=== PATIENT | female | born 1970 | race Caucasian/White ===

== ENCOUNTER 2017-12-11 19:55 | Emergency (ER) | payer OTHER ==
--- NOTE | 2017-12-11 20:51 | EDM.PDOC ---
ED HPI GENERAL MEDICAL PROBLEM - General Chief Complaint: Chest Pain Stated Complaint: chest pain Time Seen by Provider: 12/11/17 20:09 Source of Information: Reports: Patient History Limitations: Reports: No Limitations - History of Present Illness INITIAL COMMENTS - FREE TEXT/NARRATIVE: This is a 47-year-old female. This afternoon she went to the store and got some groceries and when she got home she had to go up 8 steps into the house reading her bags of groceries and she did this 3 times. After which she was very short of breath and felt weak and she developed a throbbing in her left anterior chest that seemed to go down her left arm into the elbow. This was on the outside of the arm and not in the axilla area. It did not go into her neck it did not radiate into her jaw. He was not in the center of the chest but actually up underneath the clavicle. She did have some nausea and vomiting one time with the shortness of breath. He says she saw Dr. Linares a wheat grower in [facility] be a little more than a year ago had a cardiac stress test due to her inability to get her cholesterol down and he thought the stress test was abnormal but not enough to do a cardiac Cath. It was more abnormal because she can only last about 8 minutes in the stress test due to shortness of breath though she did not have any chest pain. She denies any smoking she denies any other acute symptoms. Right now she still has mild throbbing in the left anterior chest area but no other symptoms. Family history includes a father who smoked and was exposed to Agent [place] and had multiple heart attacks and strokes starting when he was in his 40s. Her mother does not have any significant medical problems nor her brothers or sisters. Treatments PESTICIDE USE MEDICAL COORDINATOR: Reports: Other (see below) Other Treatments PESTICIDE USE MEDICAL COORDINATOR: aspirin 81 mg Left Chest Pain Score (Numeric/FACES): 6 - Related Data Allergies Allergy/AdvReac Type Severity Reaction Status Date / Time No Known Allergies Allergy Verified 05/01/16 09:13 Home Meds: Home Meds Aspirin [Halfprin] 81 mg PO DAILY 12/11/17 [History] DULoxetine [Cymbalta] 30 mg PO DAILY 12/11/17 [History] Ezetimibe [Zetia] 10 mg PO DAILY 12/11/17 [History] Nitroglycerin 0.4 mg SL ONETIME PRN #1 bottle 12/11/17 [Rx] Hooper-3/DHA/Epa/Fish Oil [Fish Oil 1,000 mg Softgel] 2 each PO DAILY 12/11/17 [ History] Rosuvastatin Calcium [Crestor] 40 mg PO DAILY 12/11/17 [History] Ubidecarenone [Coq-10] 200 mg PO DAILY 12/11/17 [History] Past Medical History Cardiovascular History: Reports: High Cholesterol Gastrointestinal History: Reports: Other (See Below) Other Gastrointestinal History: rectal polyps removed benign Musculoskeletal History: Reports: Other (See Below) Other Musculoskeletal History: melania veena - Past Surgical History HEENT Surgical History: Reports: LASIK Female Surgical History: Reports: Hysterectomy Social & Family History - Tobacco Use Smoking Status *Q: Never Smoker - Caffeine Use Caffeine Use: Reports: Soda - Recreational Drug Use Recreational Drug Use: No ED ROS GENERAL - Review of Systems Review Of Systems: See Below Constitutional: Denies: Fever, Chills HEENT: Reports: No Symptoms Respiratory: Reports: Shortness of Breath. Denies: Wheezing, Cough Cardiovascular: Denies: Chest Pain GI/Abdominal: Reports: Nausea, Vomiting. Denies: Abdominal Pain, Diarrhea : Reports: No Symptoms Musculoskeletal: Reports: No Symptoms Skin: Reports: No Symptoms Neurological: Reports: No Symptoms Psychiatric: Reports: No Symptoms Hematologic/Lymphatic: Reports: No Symptoms ED EXAM, GENERAL - Physical Exam Exam: See Below Exam Limited By: No Limitations General Appearance: Alert, WD/WN, No Apparent Distress Eye Exam: Bilateral Eye: Normal Inspection Ears: Normal External Exam, Normal Canal, Normal TMs Nose: Normal Inspection Throat/Mouth: Normal Inspection, Normal Lips, Normal Voice, No Airway Compromise Head: Normocephalic Neck: Supple Respiratory/Chest: No Respiratory Distress, Lungs Clear, Normal Breath Sounds, Other (Palpation of the left anterior chest where she complained of throbbing just below the clavicle is nontender on palpation. She does have tenderness however in the left shoulder upper back rhomboid muscles on palpation) Cardiovascular: Regular Rate, Rhythm, No Murmur GI/Abdominal: Soft, Non-Tender Back Exam: Normal Inspection, Full Range of Motion Extremities: Normal Inspection, Normal Range of Motion, Other (Left shoulder does not appear to be tender with movement there is no bicipital tendon pain on palpation, the pain down the left arm has resolved at this time and it only seems to be in the left anterior chest area that she got a slight throbbing) Neurological: Alert, Oriented Psychiatric: Normal Affect, Normal Mood Skin Exam: Warm, Dry EKG INTERPRETATION EKG Date: 12/11/17 Time: 20:02 EKG Interpretation Comments: EKG shows a sinus rhythm normal, no acute ST or T-wave changes, no acute ischemia noted. Course - Vital Signs Last Recorded V/S: Last Vital Signs Temp 97.8 F 12/11/17 20:02 Pulse 66 12/11/17 22:31 Resp 19 12/11/17 22:31 BP 80/68 L 12/11/17 22:31 Pulse Ox 93 L 12/11/17 22:31 - Orders/Labs/Meds Orders: Active Orders 24 hr Category Date Time Status EKG 12 Lead [EKG Documentation Completion] [RC] STAT Care 12/11/17 20:20 Active Labs: Laboratory Tests 12/11/17 12/11/17 12/11/17 Range/Units 20:09 20:09 22:24 WBC 8.58 (3.98-10.04) K/mm3 RBC 4.33 (3.98-5.22) M/mm3 Hgb 12.4 (11.2-15.7) gm/L Hct 37.8 (34.1-44.9) % MCV 87.3 (79.4-94.8) fl MCH 28.6 (25.6-32.2) pg MCHC 32.8 (32.2-35.5) g/dl RDW Std Deviation 45.5 (36.4-46.3) fL Plt Count 234 (182-369) K/mm3 MPV 10.4 (9.4-12.3) fl Neut % (Auto) 54.5 (34.0-71.1) % Lymph % (Auto) 35.8 (19.3-51.7) % [place] % (Auto) 7.2 (4.7-12.5) % Eos % (Auto) 2.0 (0.7-5.8) Baso % (Auto) 0.3 (0.1-1.2) % Neut # (Auto) 4.67 (1.56-6.13) K/mm3 Lymph # (Auto) 3.07 (1.18-3.74) K/mm3 [place] # (Auto) 0.62 H (0.24-0.36) K/mm3 Eos # (Auto) 0.17 (0.04-0.36) K/mm3 Baso # (Auto) 0.03 (0.01-0.08) K/mm3 Sodium 137 (136-145) mEq/L Potassium 3.6 (3.5-5.1) mEq/L Chloride 104 (98-107) mEq/L Carbon Dioxide 25 (21-32) mEq/L Anion Gap 11.6 (5-15) BUN 16 (7-18) mg/dL Creatinine 0.9 (0.55-1.02) mg/dL Est Cr Clr Drug Dosing 75.95 mL/min Estimated GFR (MDRD) > 60 (>60) mL/min BUN/Creatinine Ratio 17.8 (14-18) Glucose 97 (74-106) mg/dL Calcium 8.2 L (8.5-10.1) mg/dL Total Bilirubin 0.3 (0.2-1.0) mg/dL AST 17 (15-37) U/L ALT 19 (14-59) U/L Alkaline Phosphatase 149 H (46-116) U/L Troponin I < 0.017 < 0.017 (0.00-0.056) ng/mL Total Protein 6.7 (6.4-8.2) g/dl Albumin 3.3 L (3.4-5.0) g/dl Globulin 3.4 gm/dL Albumin/Globulin Ratio 1.0 (1-2) Meds: Medications Discontinued Medications Generic Name Dose Route Start Last Admin Trade Name Freq PRN Reason Stop Dose Admin Nitroglycerin 0.4 mg 12/11/17 20:52 12/11/17 20:56 Nitrostat SL 12/11/17 20:53 0.4 mg ONETIME ONE Administration - Re-Assessments/Exams Free Text/Narrative Re-Assessment/Exam: 12/11/17 22:03 I spoke to the patient regarding the EKG and the lab results with a negative troponin. We did give her a single nitroglycerin that seemed to resolve that throbbing sensation in her left anterior chest just below the clavicle. She feels good now. We will recheck a troponin 2 hours after the first draw to make sure there is no change. I encouraged her again to see Dr. Linares this week for recheck and further evaluation. 12/11/17 23:10 I spoke to the patient and her significant other that the second enzyme was negative. I stressed heavily that she has to follow up with her wheat grower this week for evaluation. I'll give her a prescription for some sublingual nitroglycerin and if she develops the chest symptoms she had tonight she is to take 1 while seated I warned her about nitroglycerin dropping the blood pressure and if the nitroglycerin does not resolve the chest pain adequately she needs to return to the ER. In the meantime she is not to do anything strenuous at home or going up and down a lot of steps. She states she understands. Departure - Departure Time of Disposition: 23:12 Disposition: Home, Self-Care 01 Condition: Good Clinical Impression: Chest pain Qualifiers: Chest pain type: unspecified Qualified Code(s): R07.9 - Chest pain, unspecified Prescriptions: Nitroglycerin 0.4 mg SL ONETIME PRN #1 bottle PRN Reason: Chest Pain Referrals: Jacqueline Mosquera NP [Primary Care Provider] - Romero Linares MD [Ordering Only Provider] - Forms: ED Department Discharge Additional Instructions: Gentle activity until you follow up with your wheat grower Dr. Linares, call his office on Wednesday for recheck and evaluation, use the nitroglycerin sublingual if you have reoccurrence of the left sided chest symptoms and if 1 nitroglycerin does not resolve the symptoms you return to the ER, you may use the nitroglycerin up to 3 times in a day as long as it resolves the chest pain but after that return to the ER - My Orders Last 24 Hours: My Active Orders 12/11/17 20:20 EKG 12 Lead [EKG Documentation Completion] [RC] STAT - Assessment/Plan Last 24 Hours: My Active Orders 12/11/17 20:20 EKG 12 Lead [EKG Documentation Completion] [RC] STAT
[2017-12-11] MEDS ORDERED: Nitroglycerin 0.4 MG Tab.SL SL ONE (20:52)
== END 2017-12-11 23:25 | disposition home or self-care (01) ==
LOC: JD.ED 19:55
DX: R07.89 Other chest pain (principal); E78.00 Pure hypercholesterolemia, unspecified; Z79.82 Long term (current) use of aspirin
CPT/HCPCS: 36415; 80053; 84484; 85025; 93005; 99285; A9270; 93010; 99284-25